=== PATIENT | male | born 1925 | race Caucasian/White ===

== ENCOUNTER 2016-12-29 16:37 | Inpatient (IN) | payer MEDICARE ==
[~2016-12-29] VITALS: Ht 172.7 cm; Wt 99.6 kg
--- NOTE | ~2016-12-29 | HP ---
ADMIT: 12/29/2016 RM/LOC: 506 [facility] MR#: [id number] [address] [address] BERNABE ROJAS [address] [place] [address] History and Physical SEX: M AGE: 89 : 1925 DATE OF SERVICE: 12/30/2016 CHIEF COMPLAINT: Right lower extremity edema and cellulitis, refractory to outpatient IV daptomycin. HISTORY OF PRESENT ILLNESS: Bernabe is a pleasant 89-year-old male who is being admitted for the 3rd time in the last 2-3 weeks with ongoing right lower extremity cellulitis, primarily localized to the right lateral malleolus. He was just discharged from the hospital on 12/26/2016, on IV daptomycin as he was improving with this. However, he returned to my outpatient clinic yesterday for close followup and his right lower extremity was still markedly swollen red and he had what appeared to be a developing necrotic wound along the right lateral malleolus. He had a temp of 100.3, and decision was made to put him back in the hospital with IV antibiotics and for a surgical consult as well as an ID consult. For his past medical history, surgical history, medications, social history, allergies, and family history please refer to his previous H and Ps. REVIEW OF SYSTEMS: Aside from his swelling, he has otherwise been doing okay at home. PHYSICAL EXAMINATION: VITAL SIGNS: Blood pressure is 130/61, pulse 70, respirations 18, temp 98.7, and O2 saturation is 92% on room air. GENERAL: He is awake, alert, no acute distress. Comfortable in the exam room. HEENT: Normocephalic and atraumatic. SKIN: Examination of his right lower extremity shows 3 to 4+ edema, particularly along from the knee on down. He has significant warmth and erythema of the foot and the posterior calf as well as the lateral calf. He also has about a quarter-sized necrotic wound along the distal fibula, which does appear to possibly have some purulent material beneath this. As with his previous exam, he has really does not have anything particularly fluctuant. LABORATORY AND X-RAY DATA: White count 6.1, hemoglobin 11, hematocrit 33.4, and platelet 244. CMP shows sodium 132, potassium 4.8, chloride 99, CO2 of 25, BUN 32, glucose 171, and creatinine 2.2. Plain films of the right ankle showed decreased ankle soft tissue swelling. No evidence for osteomyelitis. ADMIT: 12/29/2016 RM/LOC: 506 [facility] MR#: [id number] [address] [address] PATYBERNABE BAUMANN [address] [place] [address] History and Physical SEX: M AGE: 89 : 1925 ASSESSMENT: Right lateral malleolus cellulitis with possible abscess. PLAN: He has been admitted to the hospital. We will continue his IV daptomycin and Zosyn. Initially I had consulted General Surgery, Dr. Gallego. He recommended that we consult Podiatry for surgical opinion on this. Dr. Arriaga with Podiatry has been by to see him and does feel the debridement of the right lateral malleolus is indicated and will likely take him down to the operating room tomorrow. I have asked Dr. Bryant to come by and help tailor his IV antibiotic therapy. Again I suspect he probably does have an abscess in this area which would be the reason the cellulitis just simply will not get better. CT scan of his right ankle without contrast is pending. Maxime London MD/ bia JOB #: [id number] CC: Maxime London, Attending Physician Maxime London, Family Physician
--- NOTE | ~2016-12-29 | OR ---
ADMIT: 12/29/2016 RM/LOC: 506 [facility] MR#: [id number] [address] [address] BERNABE ROJAS [address] [place] [address] Operative/Delivery Room Report SEX: M AGE: 89 : 1925 SURGERY DATE: 12/31/2016 SURGEON: Dario Arriaga DPM MEDICAL RESEARCH SCIENTIST: None. PREOPERATIVE DIAGNOSIS: Abscess, right leg. POSTOPERATIVE DIAGNOSIS: Abscess, right leg. PROCEDURE: Incision and drainage with application of wound VAC to the right leg. ANESTHESIA: General anesthesia. COMPLICATIONS: None. SPECIMENS: Culture and sensitivity of the right leg abscess. ESTIMATED BLOOD LOSS: 2 mL. FLUID REPLACEMENT: Per Anesthesia. HEMOSTASIS: None. INJECTIONS: None. MATERIALS: None. PREOPERATIVE STATEMENT: This patient was seen in the inpatient setting for cellulitis and abscess of the right leg. A bedside debridement was performed, but further debridement was necessary, hence the patient's pain required care from Anesthesia. The patient was seen in the preoperative area. The consent was reviewed with the patient including the risks and benefits of the procedure. The patient's questions were answered in detail and the consent was noted to be signed and placed on the chart. The H and P were up-to-date. The labs, EKGs, and x-rays were reviewed and there were no contraindications to surgery at this time. OPERATIVE REPORT: This patient was brought back to the operating room and left on the gurney in the supine position. No tourniquet was applied. The time-out was performed. The site marking was noted when all in agreement. The foot was prepped and draped in normal aseptic technique and the procedure was underway. Using a #15 blade and pickup, the necrotic portions of the right lateral leg were debrided down to and including the muscle and soft tissue, very minimal ADMIT: 12/29/2016 RM/LOC: 506 [facility] MR#: [id number] 2620 [facility] [address] [place] [id number] BERNABE ROJAS [address] [place] [address] Operative/Delivery Room Report SEX: M AGE: 89 : 1925 bleeding was identified. Debridement was carried out to the level of healthy bleeding tissue. Once this was achieved, 3 L of sterile saline was irrigated with a Pulsavac through the wound bed. No further necrotic tissue was identified. The wound VAC was applied in the usual manner with black foam and it was placed at 150 mmHg. The patient was transferred to the recovery room with vital signs stable and neurovascularly intact. The patient is to be returned to the inpatient status where he is to continue to receive IV antibiotics. We will monitor the results of the culture, and I would expect that the surrounding erythema should resolve quickly. We will follow him as an inpatient, and the patient is likely to need assistance with placement for either home services or nursing facility for wound care and IV antibiotics. Dario Arriaga DPM/ bia JOB #: [id number] CC: Maxime London, Attending Physician Maxime London, Family Physician
--- NOTE | ~2016-12-29 | CO ---
ADMIT: 12/29/2016 RM/LOC: 506 [facility] MR#: [id number] [address] [address] BERNABE ROJAS [address] [place] [address] Consultation SEX: M AGE: 89 : 1925 DATE OF CONSULTATION: 12/30/2016 ATTENDING PHYSICIAN: Maxime London CONSULTING PHYSICIAN: Dario Arriaga DPM CHIEF COMPLAINT: Right leg cellulitis. HISTORY OF PRESENT ILLNESS: This patient is an 89-year-old nondiabetic male, who presented on to the Emergency Department with pain, redness, and swelling of the right lower extremity. In the past few months, the patient had significant pruritus, which he has been using a steroid cream, but believes that he caused the infection by scratching his leg intensely. The patient has had previous hospitalization and antibiotic with recurrent symptoms. The patient has had some intermittent fever, but his biggest complaint is erythema, swelling, and pain of the right lower extremity. PAST MEDICAL HISTORY: Coronary artery disease, hypothyroidism, AAA, chronic kidney disease stage 3, CVA, gout, glaucoma, COPD, hypertension, hyperlipidemia, atrial fibrillation, cataracts, postherpetic neuralgia, macular degeneration, BPH, blindness, and carpal tunnel. PAST SURGICAL HISTORY,: Five-vessel bypass, porcine aortic valve replacement, pacemaker placement, hemorrhoidectomy, carotid endarterectomy, bilateral knee replacement, cataract removal. ALLERGIES: SULFA. MEDICATIONS: Please see the chart for current medication list. SOCIAL HISTORY: Patient lives with his . No alcohol, tobacco, or drug abuse. FAMILY HISTORY: Noncontributory. REVIEW OF SYSTEMS: Negative except for stated above. PHYSICAL EXAMINATION: VASCULAR: The patient has nonpalpable pulses bilaterally secondary to severe nonpitting edema, right greater than left. Thin shiny skin with absent hair growth. NEURO: Light touch sensation is diminished to the feet bilaterally. DERM: The patient has a small darkened lesion approximately 2 cm in diameter of the lateral right leg with surrounding erythema. There is some streaking to the medial aspect of the knee and medial thigh with palpable lymph nodes in the popliteal fossa. Some questionable fluctuance at the area of the darkened skin, but no open ulceration identified. Muscular pain on palpation of the lateral ankle. No crepitation noted. LABORATORY DATA: X-ray shows no subcutaneous gas or other acute findings. ADMIT: 12/29/2016 RM/LOC: 506 [facility] MR#: [id number] [address] [address] BERNABE ROJAS [address] [place] [address] Consultation SEX: M AGE: 89 : 1925 Sodium 132, potassium 4.8, BUN 32, creatinine 2.2. White count 6.1, hemoglobin 11, hematocrit 8.6, platelets 244. ESR 39, CRP 4.47. Culture shows no growth x4 cultures. ASSESSMENT: 1. Cellulitis, possible abscess. 2. Coronary artery disease. 3. Peripheral neuropathy. 4. Peripheral vascular disease. PLAN: I suspect there is a small fluid collection beneath the area of darkened tissue at the lateral ankle. CT from the past did not show abscess, but we will repeat that today, would ideally have an MRI, but the patient is unable due to his pacemaker. We will tentatively set a time for Thursday for an I and D if needed. We will follow up with the CT once it is available. His questions were answered in detail. Dario Arriaga DPM/ bia JOB #: [id number] CC: Maxime London, Attending Physician Maxime London, Family Physician
--- NOTE | ~2016-12-29 | WND ---
ADMIT: 12/29/2016 RM/LOC: 506 [facility] MR#: [id number] [address] [address] BERNABE ROJAS [address] [place] [address] Wound Care Clinic SEX: M AGE: 89 : 1925 DATE OF VISIT: 01/01/2017 TIME IN: 10:45 TIME OUT: 10:55 REASON FOR VISIT: [id number] and wound VAC therapy to right leg. Request for wound care from Dr. Arriaga. HISTORY OF PRESENT ILLNESS: This is an 89-year-old male, being seen for the first time for [facility]. He was admitted to [facility] on 12/29/2016 and this is actually the third time he was admitted in the last 2 to 3 weeks with ongoing right lower extremity cellulitis. It was primarily localized in the right lateral malleolar area. He was recently discharged from the hospital on 12/26/2016 on IV daptomycin and he was improving. However, he returned to the clinic to see Dr. London and it was noted that his right lower extremity was still swollen and appeared to be developing a necrotic wound along the right lateral malleolar area. He also had a temp up to 100.3. Therefore, he was placed back in the hospital for IV antibiotics as well a surgical consult along with Infectious Disease. He was seen by Dr. Dario Arriaga, who noted an x-ray that showed no subcutaneous gas or other acute findings. It was determined that there was a small fluid collection beneath the area of the eschar on the lateral right ankle; therefore, he was taken to surgery for I and D of the abscess of the right leg with application of the wound VAC. He is also followed by Dr. Bryant from Infectious Disease for right lower extremity severe cellulitis. He is on IV Zosyn and daptomycin. He was also noted to have cutaneous candidiasis and started on nystatin powder as well as micafungin. PAST MEDICAL HISTORY: 1. Hyperlipidemia. 2. Status post aortic valve replacement with tissue valve. 3. Permanent atrial fibrillation with slow ventricular response, status post pacemaker placement. 4. Hypertension. 5. Stage 3 chronic kidney disease. 6. Peripheral vascular disease. 7. Cataracts. 8. History of postherpetic neuralgia. 9. Age-related macular degeneration. 10.Bilateral carotid stenosis. 11.Generalized osteoarthritis. 12.COPD. 13.Carpal tunnel syndrome. 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 15.History of CVA. 16.Gout. 17.Hypothyroidism. 18.History of abdominal aortic aneurysm. 19.Atherosclerotic coronary artery disease. ADMIT: 12/29/2016 RM/LOC: 506 [facility] MR#: [id number] [address] [address] BERNABE ROJAS [address] [place] [address] Wound Care Clinic SEX: M AGE: 89 : 1925 20.Benign prostatic hyperplasia. PAST SURGICAL HISTORY: 1. Hemorrhoidectomy in 1963 and 1974. 2. Cardiac pacemaker, August of 2013, dual chamber pacer. 3. Carotid endarterectomy in 1987. 4. Bilateral knee replacements in 2004. 5. Cataract removal with prosthetic lens in 2001 bilaterally. 6. Five-vessel coronary artery bypass in 2008. 7. Porcine aortic valve replacement in 2008. ALLERGIES: Bactrim and sulfa. CURRENT MEDICATIONS: 1. Claritin. 2. Flomax. 3. Metamucil. 4. Faucett-3. 5. Synthroid. 6. Therapeutic multivitamins. 7. Tylenol Extra Strength. 8. Zestril. 9. Zocor. 10.Zyloprim. 11.Flonase. 12.Pred Forte. 13.Tears Naturale. 14.Mycostatin powder. 15.Mycamine. 16.Zosyn. P.R.N. medications: 1. Colace. 2. Hydrocodone. 3. Maalox. 4. Tylenol. 5. Ultram. 6. Proventil. 7. Tylenol suppository. 8. Nitrostat. SOCIAL HISTORY: He is . He lives with his , Cristiana. He still farms to a limited extent. He never smoked. He denies any drug use. He does drink 1 to 2 beers a day or a shot or two a day. Drinks two cups coffee per day. FAMILY HISTORY: Significant for cancer and hypertension. REVIEW OF SYSTEMS: He is examined in his hospital room where he is awake, alert, and oriented x3. He does have his legs elevated in his recliner. He ADMIT: 12/29/2016 RM/LOC: 506 [facility] MR#: [id number] [facility] [address] [address] BERNABE ROJAS [address] [place] [address] Wound Care Clinic SEX: M AGE: 89 : 1925 denies any recent fever or chills. No nausea or vomiting. No cough, cold, or chest pain. He does say that he has no abdominal discomfort. When asked if he had pain in his foot, he says "I know it is there." PHYSICAL EXAMINATION: VITAL SIGNS: 98,9, 73, 16, blood pressure 130/55, O2 sats on room air is 96%. Focused exam to his right lower extremity showed that the wound VAC is in place. He has a small amount of serosanguineous drainage noted in the tubing of the wound VAC. His toes have brisk capillary refill. The wound VAC dressing was not removed today. ASSESSMENT: Wound VAC therapy to right lower extremity, status post I and D. TREATMENT PLAN: Wound Care will return tomorrow for wound VAC dressing change. Education was done about the purpose of the wound VAC. Also, instructed him that he will have VAC dressing changes Thursday, Thursday, and Thursday. According to the patient and his daughter at the bedside, discussion is occurring now whether he will be followed by home health care or go to a assisted facility. Thank you for this referral. Wound will continue to follow. Delphine Boss APRN/ bia JOB #: [id number] CC: Maxime London, Attending Physician Maxime London, Family Physician
[~2016-12-29 16:37] MED LIST: ALLOPURINOL100 MG PO; ASA325 MG PO; CLINDAMYCIN HC300 MG PO; COLACE-DPS100 MG PO; CUBICIN RF500 MG IV; FLOMAX DPS0.4 MG PO; FLONASE 0.05% D16 GM NS; KEFLEX-DPS500 MG PO; LACRI-LUBE3.5 GM OS; LEVAQUIN DPS750 MG PO; LEVOTHYROXINE75 MCG PO; METAMUCIL POWD822 GM PO; METAMUCIL SF P3.4 GM PO; NITROSTAT0.4 MG SL; OMEGA-3 ACID ETH1 GM PO; OMEGA-3 DPS1000 MG PO; PRED FORTE 1% DP5 ML OD; PROAIR HFA8.5 GM IH; PROVENTIL2.5 MG/3 M IH; REFRESH TEARS15 ML OS; REFRESH TEARS15 ML OU; SYNTHROID75 MCG PO; TEMOVATE O.05%15 GM TP; TYLENOL EXTRA500 M1 PO; TYLENOL EXTRA500 MG PO; ULTRAM DPS50 MG PO; VISION PLUS LU1 EACH PO; VISION VITAMIN1 EACH PO; ZAROXOLYN2.5 MG PO; ZESTRIL DPS10 MG PO; ZESTRIL5 MG PO; ZOCOR DPS40 MG PO; ZYLOPRIM-DPS100 MG PO; [UNRECOGNIZED DRUG - OTHER] OD
--- NOTE | 2017-01-01 09:14 | CO ---
ADMIT: 12/29/2016 RM/LOC: 506 [facility] MR#: [id number] [address] [address] BERNABE ROJAS [address] [place] [address] Consultation SEX: M AGE: 89 : 1925 DATE OF CONSULTATION: 12/29/2016 ATTENDING PHYSICIAN: Maxime London CONSULTING PHYSICIAN: Kingston Gallego MD HISTORY OF PRESENT ILLNESS: This is an 89-year-old male, seen in surgical consultation for Dr. London for a right leg ankle wound and cellulitis. Bernabe describes it two and half weeks ago, he started having swelling and pain in the right lower extremity. He reports he was admitted for four days at that time for treatment of the cellulitis and then went home. He had some worsening of that and came back for another near week admission by his recollection. He was discharged home and then came to the clinic today to see Dr. London. The wound had worsened with continued erythematous change and also had a wound overlying the lateral malleolus on the right ankle. He was admitted for further workup. He has had low-grade fever and was 100 degrees in the office today. Tonight, he denies other complaints with the exception of some pain and swelling in that right leg below the knee and involving the ankle and foot. PAST MEDICAL HISTORY: Prior aortic valve replacement, hyperlipidemia, atrial fibrillation, hypertension, stage 3 renal disease, peripheral vascular disease, prior cataracts, bilateral carotid artery stenosis, osteoarthritis, COPD, glaucoma, prior stroke, gout, hypothyroidism, abdominal aortic aneurysm, coronary artery disease, benign prostatic hypertrophy. PAST SURGICAL HISTORY: Hemorrhoidectomy, pacemaker insertion, carotid endarterectomy, bilateral knee replacements, cataract extraction, coronary artery bypass grafting, aortic valve replacement. MEDICATIONS: At home: 1. Allopurinol. 2. Flonase. 3. Synthroid. 4. Zocor. 5. Lisinopril. 6. Flomax. 7. Albuterol. 8. Clobetasol. 9. Prednisolone. 10.Metamucil. 11.Nitrostat. 12.Colace. 13.Fish oil. 14.Aspirin. ALLERGIES: BACTRIM AND SULFA. SOCIAL HISTORY: He is and lives with his . He still has some limited farming responsibility. He is a nonsmoker. He drinks occasional ADMIT: 12/29/2016 RM/LOC: 506 [facility] MR#: [id number] [address] [address] BERNABE ROJAS [address] [place] [address] Consultation SEX: M AGE: 89 : 1925 alcohol. FAMILY HISTORY: Reviewed and noncontributory. REVIEW OF SYSTEMS: Symptoms are mentioned above regarding the right leg. Remainder of the 10-point review of systems is negative for recent change. PHYSICAL EXAMINATION: GENERAL: Bernabe is alert, oriented, and in no acute distress. VITAL SIGNS: Current vital signs are stable and he is afebrile. HEENT: Sclerae appear grossly anicteric. NECK: Supple without lymphadenopathy. LUNGS: Clear bilaterally. HEART: Regular rate and rhythm. ABDOMEN: Soft and nontender. EXTREMITIES: Reveal 4+ edema of his right lower extremity below the knee. There was severe erythematous change blanching with plantar and dorsiflexion at the ankle. He does have an approximate 1.5 cm ulceration overlying the right lateral malleolus. That is too tight of swelling to discrete fluctuance. He does have tenderness with palpation throughout the area. Left lower extremity reveals edema 2+ in nature without erythematous change or infectious finding. IMPRESSION: Cellulitis with question of abscess and right malleolar wound. PLAN: I did recommend that we obtain a Podiatry consultation for management of this, given the location and extensive involvement down into the foot. He is to continue his IV antibiotic therapy. I will make him tentatively n.p.o. after midnight pending the Podiatry consultation and their recommendations. Kingston Gallego MD/ bia JOB #: [id number] CC: Maxime London, Attending Physician Maxime London, Family Physician
--- NOTE | 2017-01-06 09:53 | CO ---
ADMIT: 12/29/2016 RM/LOC: 506 [facility] MR#: [id number] [address] [address] BERNABE ROJAS [address] [place] [address] Consultation SEX: M AGE: 89 : 1925 DATE OF CONSULTATION: 12/30/2016 ATTENDING PHYSICIAN: Maxime London CONSULTING PHYSICIAN: Maricel Bryant MD REASON FOR CONSULT: Right lower extremity cellulitis. Thank you, Dr. London, for the consult and involving me in this patient's care. HISTORY OF PRESENT ILLNESS: Mr. Rojas is an 89-year-old pleasant man who was recently in the hospital last week for persistent right leg cellulitis. He had failed oral antibiotics and was admitted to the hospital and received daptomycin. His right leg was slowly improving. On his followup appointment with Dr. London yesterday, he was noted to have fever of 100.3 in his clinic and he had a blister on the right ankle, which had popped open with a new scab formation. Due to increased fever and persistent redness, he was again admitted in the hospital. At present, patient continues to complain of soreness around his ankle and has significant edema. He has remained afebrile since his admission. He continues to have significant pruritus all over his body. Past medical history, family history, and social history Reviewed. For details please refer to prior note. ALLERGIES: SULFA DRUGS. CURRENT MEDICATIONS: Reviewed. He is currently on: 1. Daptomycin 550 mg once daily. 2. Zosyn 3.375 g every 8 hours for antibiotics. REVIEW OF SYSTEMS: A 10-point review of systems negative except as mentioned in HPI. PHYSICAL EXAMINATION: VITAL SIGNS: Current temperature 98.7, heart rate 70, respirations 18, blood pressure 130/61, and 92% on room air. GENERAL: No acute distress. HEENT: Head, normocephalic and atraumatic. Extraocular movements intact. CHEST: Decreased breath sounds bilaterally. No wheezes, rales, or rhonchi. CARDIOVASCULAR: S1 and S2 heard. Irregular rate and rhythm. ABDOMEN: Soft and nontender. Active bowel sounds. PSYCH: Normal affect. Memory intact. MUSCULOSKELETAL: Right lower extremity erythema has improved since last week, however, still has 4+ edema. There is also a blood-filled blister, which has opened on the lateral malleolus and now has a scab formation. SKIN: He has erythema in bilateral groin and hematoma on his lower abdomen, likely from subcutaneous injections. NEUROLOGY: Alert and oriented x3. ADMIT: 12/29/2016 RM/LOC: 506 [facility] MR#: [id number] [address] [address] BERNABE ROJAS [address] [place] [address] Consultation SEX: M AGE: 89 : 1925 DATA REVIEW: CBC today shows white count of 6.1, hemoglobin 11, and platelets of 244. BMP shows creatinine of 2.2 and sodium 132. Blood cultures have been no growth to date. ASSESSMENT AND PLAN: 1. Right lower extremity severe cellulitis. At this time, I will continue him on Zosyn and daptomycin renally dosed. He still has significant edema and his diuretics have been on hold secondary to his creatinine. I think it will take another 2-3 weeks for total resolution. Podiatry has been consulted and has been evaluated by Dr. Arriaga for possible underlying abscess. 2. Cutaneous candidiasis. I will start him on nystatin powder and micafungin 100 mg once daily for 7 days. 3. Severe pruritus. We will give him as needed Benadryl 25 mg for now. 4. Status post aortic valve replacement. 5. Chronic kidney disease stage 3. 6. Coronary artery disease, status post coronary artery bypass grafting. Thank you for the consult. I will continue to follow the patient. Maricel Bryant MD/ bia JOB #: [id number] CC: Maxime London, Attending Physician Maxime London, Family Physician
== END 2017-01-02 12:21 | DRG 580 ==
LOC: 5MS 16:37
PROVIDERS: ADMIT Family Medicine
PROC: 0J9N0ZZ Drainage of Right Lower Leg Subcutaneous Tissue and Fascia, Open Approach (ICD-10-PCS; principal; 2016-12-30)
PROC: 0JDN0ZZ Extraction of Right Lower Leg Subcutaneous Tissue and Fascia, Open Approach (ICD-10-PCS; 2016-12-31)
DX: L02.415 Cutaneous abscess of right lower limb (principal); B02.29 Other postherpetic nervous system involvement; I48.91 Unspecified atrial fibrillation; J44.9 Chronic obstructive pulmonary disease, unspecified; I65.23 Occlusion and stenosis of bilateral carotid arteries; B37.2 Candidiasis of skin and nail; I12.9 Hypertensive chronic kidney disease with stage 1 through stage 4 chronic kidney disease, or unspecified chronic kidney disease; L03.115 Cellulitis of right lower limb; E78.5 Hyperlipidemia, unspecified; E66.9 Obesity, unspecified; Z68.32 Body mass index [BMI] 32.0-32.9, adult; D63.1 Anemia in chronic kidney disease; N18.3 Chronic kidney disease, stage 3 (moderate); M19.90 Unspecified osteoarthritis, unspecified site; I73.9 Peripheral vascular disease, unspecified; H35.30 Unspecified macular degeneration; I25.2 Old myocardial infarction; H40.9 Unspecified glaucoma; M10.9 Gout, unspecified; E03.9 Hypothyroidism, unspecified; I71.4 Abdominal aortic aneurysm, without rupture; I25.10 Atherosclerotic heart disease of native coronary artery without angina pectoris; N40.0 Benign prostatic hyperplasia without lower urinary tract symptoms; Z86.73 Personal history of transient ischemic attack (TIA), and cerebral infarction without residual deficits; Z95.4 Presence of other heart-valve replacement; Z95.0 Presence of cardiac pacemaker; Z96.653 Presence of artificial knee joint, bilateral; Z95.1 Presence of aortocoronary bypass graft; Z79.82 Long term (current) use of aspirin